=== PATIENT | male | born 1980 | race African-American/Black ===

== ENCOUNTER 2017-09-18 19:13 | Emergency (ER) | payer MEDICAID ==
[~2017-09-18] VITALS: Ht 188 cm; Wt 105.0 kg
[2017-09-18 19:16] VITALS: BP 120/79
== END 2017-09-18 20:33 | disposition home or self-care (01) ==
LOC: ED 20:27
DX: S83.92XA Sprain of unspecified site of left knee, initial encounter (principal); X50.0XXA Overexertion from strenuous movement or load, initial encounter; X50.9XXA Other and unspecified overexertion or strenuous movements or postures, initial encounter; Y93.64 Activity, baseball; Y99.8 Other external cause status; Y92.320 Baseball field as the place of occurrence of the external cause
CPT/HCPCS: 29505; 99284